=== PATIENT | female | born 1960 | race Caucasian/White ===

== ENCOUNTER → 2019-11-10 | Outpatient (REF) | payer BC | LOC: M LAB REF 13:10 | PROVIDERS: ATTEND Physician Assistant | DX: L82.1 Other seborrheic keratosis (principal) ==

== ENCOUNTER → 2023-08-27 | Outpatient (REF) | payer BC | LOC: M SFHCDERM 17:19 | PROVIDERS: ATTEND Physician Assistant | DX: C44.619 Basal cell carcinoma of skin of left upper limb, including shoulder (principal) ==

== ENCOUNTER → 2024-05-27 | Outpatient (CLI) | payer MEDICARE ==
[~2024-05-27] MED LIST: METHACHOLINE KIT (6 VIAL.NEB PREMIX) INH ONE
== END ==
LOC: M CARPUL 08:45
PROVIDERS: ATTEND Internal Medicine Pulmonary Disease
DX: R05.9 Cough, unspecified (principal); Z79.899 Other long term (current) drug therapy
CPT/HCPCS: 36415; 85018; 94010; 94070; 94726; 94729; 95070; J7674